=== PATIENT | female | born 1950 | race Caucasian/White ===

== ENCOUNTER → 2023-11-29 06:20 | Day surgery (SDC) | payer OTHER, SELFPAY | LOC: GI 06:20 | PROVIDERS: ATTENDING PHYSICIAN Internal Medicine Gastroenterology | DX: Z12.11 Encounter for screening for malignant neoplasm of colon (principal); K64.8 Other hemorrhoids; K57.30 Diverticulosis of large intestine without perforation or abscess without bleeding; R12 Heartburn; K22.2 Esophageal obstruction; K44.9 Diaphragmatic hernia without obstruction or gangrene | CPT/HCPCS: 43235; G0121 ==

== ENCOUNTER → 2023-12-14 10:36 | Outpatient (REF) | payer OTHER, SELFPAY | LOC: WDC 10:36 | PROVIDERS: ATTENDING PHYSICIAN Family Medicine | DX: Z12.31 Encounter for screening mammogram for malignant neoplasm of breast (principal) | CPT/HCPCS: 77063; 77067 ==

== ENCOUNTER 2024-02-14 07:30 | Emergency (ER) | payer OTHER, SELFPAY ==
[2024-02-14 07:34] VITALS: BP 150/97
--- NOTE | 2024-02-14 10:33 | ED.GENMED ---
History of Present Illness
<Traci Mitchell MD, Resident - Last Filed: 02/14/24 10:49>
General
Chief Complaint: Musculo-Skeletal Complaint
Time Seen by Provider: 02/14/24 10:14
History of Present Illness
History of Present Illness:
73 y/o female with pmhx of HTN and HLP presenting to the ED with right hip pain. Pt notes pain started yesterday evening but became worse around midnight. Pain radiates down along her posterior thigh to the plantar surface of her foot. Pt also notes
numbness in her right foot. Patient notes has had on and off pain in her right hip since a few months ago but no radiating pain in her leg. Denies back pain, fever, urinary/fecal incontinence, nausea, vomiting. No recent trauma. Pt had a right hip
replacement 10 years ago. Took Advil x4 this morning that helped relieve the pain. Describes current pain as 5/10. Pt is not able to bear weight on that side.
Past History
<Traci Mitchell MD, Resident - Last Filed: 02/14/24 10:49>
Past History
ED Past Medical History: HTN, Hypercholesterolemia and Other (Hiatal Hernia)
ED Past Surgical History: Orthopedic (Right hip replacement)
Review of Systems
<Traci Mitchell MD, Resident - Last Filed: 02/14/24 10:49>
Review of Systems
Constitutional: Reports no symptoms
EENT: Reports no symptoms
Respiratory: Reports no symptoms
Cardiac: Reports no symptoms
ABD/GI: Reports no symptoms
: Reports no symptoms
Musculoskeletal: Reports other (right hip pain radiating down the leg)
Skin: Reports no symptoms
Neurological: Reports no symptoms
Endocrine: Reports no symptoms
Hematologic/Lymphatic: Reports no symptoms
Psychiatric: Reports no symptoms
Phy Exam
<Traci Mitchell MD, Resident - Last Filed: 02/14/24 10:49>
Physical Exam
Physical Exam:
GENERAL: Alert, awake, in pain
EYE: pupils equal and reactive
NECK: Supple, no significant adenopathy.
ENT: o/p clr, mmm.
CARDIAC: Regular rate and rhythm.
LUNGS: Clear breath sounds bilaterally, no acute respiratory distress, no wheezes/rales/rhonchi
ABDOMEN: Soft, without focal tenderness, no r/g, no cvat
NEUROLOGICAL: Alert and oriented, no focal neurodeficits. No sensory loss on right lower extremity.
SKIN: Warm and dry, skin intact.
MUSCULOSKELETAL: No edema, well perfused. ROm normal on flexion/extension of right hip. No focal tenderness on hip joint line. Pain exacerbated with palpation of posterior thigh. No midline spinal tenderness.
PSYCH: Normal and appropriate interaction.
Course
<Traci Mitchell MD, Resident - Last Filed: 02/14/24 10:49>
Orders/Labs/Results
Orders:
Orders
02/14/24 10:33
Oxycodone/Acetaminophen [Percocet 5/325] 1 tablet PO NOW STA
Prednisone [Deltasone] 50 mg PO NOW STA
Lumbar Spine, 2 or 3 View [CR Lumbar Spine 2 Or 3 Views] Urgent
Comment:
Reason For Exam: radicupopthty
Vital Signs
Initial and Last Documented VS:
Initial Vital Signs
Temp Pulse Resp BP Pulse Ox
98.2 F 84 16 150/97 99
02/14/24 07:34 02/14/24 07:34 02/14/24 07:34 02/14/24 07:34 02/14/24 07:34
Last Documented Vital Signs
Temp Pulse Resp BP Pulse Ox
98.2 F 84 16 150/97 99
02/14/24 07:34 02/14/24 07:34 02/14/24 07:34 02/14/24 07:34 02/14/24 07:34
<Mike Armenta DO - Last Filed: 02/14/24 12:10>
Orders/Labs/Results
Orders:
Orders
02/14/24 10:33
Oxycodone/Acetaminophen [Percocet 5/325] 1 tablet PO NOW STA
Prednisone [Deltasone] 50 mg PO NOW STA
Lumbar Spine, 2 or 3 View [CR Lumbar Spine 2 Or 3 Views] Urgent
Comment:
Reason For Exam: radicupopthty
Vital Signs
Initial and Last Documented VS:
Initial Vital Signs
Temp Pulse Resp BP Pulse Ox
98.2 F 84 16 150/97 99
02/14/24 07:34 02/14/24 07:34 02/14/24 07:34 02/14/24 07:34 02/14/24 07:34
Last Documented Vital Signs
Temp Pulse Resp BP Pulse Ox
98.2 F 84 16 150/97 99
02/14/24 07:34 02/14/24 07:34 02/14/24 07:34 02/14/24 07:34 02/14/24 07:34
<Traci Mitchell MD, Resident - Last Filed: 02/14/24 10:49>
MDM/Problems Addressed
Differential Diagnosis Includes:
Radiculopathy 2/2
- Herniated disk
- Compression fracture
MDM/Problems Addressed:
Lumbar spine X-ray
Pain management
Steroids
<Traci Mitchell MD, Resident - Last Filed: 02/14/24 10:49>
*Critical Care Note
Total Time (30-74mins, 75-104mins- exclusive of procedures): Not Applicable
<Mike Armenta DO - Last Filed: 02/14/24 12:10>
Update Note
Update Note:
Update x-ray noted patient feeling better
ED Attending Note
<Traci Mitchell MD, Resident - Last Filed: 02/14/24 10:49>
-
Portions of this chart may have been created with voice recognition software.� Occasional wrong word or��sound alike� substitutions may have occurred due to the inherent limitations of voice recognition software.
<Mike Armenta DO - Last Filed: 02/14/24 12:10>
ED Attending Note
Patient seen and examined by attending physician: Yes
I performed a history and physical exam of patient and discussed management with resident, I reviewed resident's note and agree with documented findings and plan of care.: Yes
ED Attending Note:
Seen with resident examined independently 73-year-old female right total hip replacement 10 years ago is intermittent pain into her hip previously past few days has been worse, trouble ambulating, numbness down to her leg and thigh, no pain with
range of motion of her hip no fevers, no nausea or vomiting, suspect this could be a lumbar radiculopathy versus other will check LS-spine film treated with steroids and analgesics
Discharge Plan
Departure
Patient Disposition: Home (Routine Discharge)
Date of Disposition: 02/14/24
Time of Disposition: 12:09
Patient with high blood pressure during this ER visit?: No
Condition: Good
Discharge Problem:
Lumbar radiculopathy
Instructions: Radiculopathy (DC)
Prescriptions:
New
methylprednisolone [Medrol (Alex)] 4 mg tablets,dose pack
See Rx Instructions .ROUTE .COMPLEX Qty: 21 0RF
Rx Instructions:
for 6 days
oxycodone-acetaminophen [Percocet] 5-325 mg tablet
1 tab PO Q6HPRN PRN (Reason: pain) Qty: 10 0RF
Referrals:
Gabriel Tripp MD [Family Provider] - Next open appointment
Interventions
Interventions:
*Risk Screen - Suicide Last Done: 02/14/24 07:34
*General Assessment Last Done: 02/14/24 07:34
*Neglect/Abuse Screening Last Done: 02/14/24 07:34
ED-Musculoskeletal Assessment Last Done: 02/14/24 11:25
Discharge Date and Time
Print Language: POLISH
[2024-02-14] MEDS: PERCOCET 5/325 1 TABLET PO (11:07)
[2024-02-14] MEDS: DELTASONE 50 MG PO (11:07)
== END 2024-02-14 12:48 | disposition home or self-care (01) ==
LOC: EMR 07:30
PROVIDERS: EMERGENCY PHYSICIAN Emergency Medicine; FAMILY PHYSICIAN Family Medicine
DX: M47.26 Other spondylosis with radiculopathy, lumbar region (principal); I10 Essential (primary) hypertension; E78.00 Pure hypercholesterolemia, unspecified; K44.9 Diaphragmatic hernia without obstruction or gangrene; Z96.641 Presence of right artificial hip joint
CPT/HCPCS: 99283; 72100

== ENCOUNTER 2024-06-20 06:06 | Day surgery (SDC) | payer OTHER, SELFPAY ==
[2024-06-01 10:59] LABS: Hematocrit 41.4 % (37.0-47.0); Mean Corp Hgb Conc. 33.8 g/dL (33.0-37.0); Mean Corpuscular Hgb 32.6 pg (27.0-31.0); Mean Corpuscular Volume 96.3 fL (81.0-99.0); Mean Platelet Volume 9.7 fL (7.4-10.4); Platelet Count 299 10^3/uL (130-400); Red Cell Dist. Width 12.9 % (11.5-14.5); White Blood Cell Count 4.8 10^3/uL (4.8-10.8)
[2024-06-01 12:43] LABS: ALT (SGPT) 17 U/L (0-35); AST (SGOT) 24 U/L (14-36); Albumin 4.5 g/dl (3.5-5.0); Alkaline Phosphatase 53 U/L (38-126); Blood Urea Nitrogen 18 mg/dl (7-17); Calcium 9.5 mg/dl (8.4-10.2); Carbon Dioxide 31 mmol/L (22-30); Chloride 99 mmol/L (98-107); Glucose 92 mg/dl (70-99); Sodium 138 mmol/L (135-145); Total Bilirubin 0.9 mg/dl (0.2-1.3); Total Protein 6.8 g/dl (6.3-8.2); eGFR > 60.00
[2024-06-01 13:10] LABS: Potassium 4.1 mmol/L (3.5-5.1)
[2024-06-01 14:10] VITALS: BMI 27.0
[2024-06-14 12:05] VITALS: BMI 27.0
[2024-06-20] VITALS (27 sets, daily range): BP systolic 85–157; BP diastolic 51–91; BMI 27.0
[2024-06-20] MEDS: CELEBREX 200 MG PO (08:43)
[2024-06-20] MEDS: TYLENOL 1000 MG PO ×2 (08:44→20:50)
[2024-06-20] MEDS: METHOCARBAMOL 1500 MG PO (08:44)
[2024-06-20] MEDS: LYRICA 150 MG PO (08:44)
[2024-06-20] MEDS: NORMOSOL-R/PLASMALYTE-A 1000 IV ×4 (08:45→20:51)
[2024-06-20] MEDS: EMEND 40 MG PO (08:54)
[2024-06-20] MEDS: DILAUDID 0.5 MG IV ×3 (10:48→11:18)
[2024-06-20] MEDS: ZOFRAN 4 MG IV (12:57)
--- NOTE | 2024-06-20 13:00 | PTCARENOTE ---
PT has been very slow and lethargic to wake up, O2 sats drop as low as 86%, explained IS and had PT use it able to pull 1500, PT fell asleep while using IS, notified DR Cat of PT's condition and he did come to evaluate, DR Cat will be back
in 1 hour to check on PT
--- NOTE | 2024-06-20 14:20 | W.DS.TRANS ---
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
-
Discharge Instructions:
Sleep Apnea Risk Low
Discharge Diagnosis/Procedures l4-5 FORAMINOTOMY DISKECTOMY 06/20/24
Diet As tolerated
Activity No strenuous activity
Driving Restrictions No driving
Instructions:
Stand-Alone Forms: [facility]
Changes to Home Medications: Yes
Discharge Medications:
DC Medications w/original date entered in [employer]
atorvastatin 20 mg tablet 20 mg PO QPM 06/13/24
omeprazole magnesium 20 mg tablet,delayed release (Prilosec OTC) 20 mg PO DAILY 06/13/24
rizatriptan 10 mg disintegrating tablet 10 mg PO ONCE PRN migraines 06/13/24
Saccharomyces boulardii 250 mg capsule (Florastor) 250 mg PO BID #1 cap 06/20/24
acetaminophen 325 mg tablet (Tylenol) 650 mg (2 x 325 mg) PO QID #1 tab 06/20/24
cephalexin 500 mg capsule 500 mg PO QID infection prevention #20 caps 06/20/24
dexamethasone 4 mg tablet 4 mg PO BID inflammation #6 tabs 06/20/24
docusate sodium 100 mg capsule (Colace) 100 mg PO BID stool softner #1 cap 06/20/24
gabapentin 300 mg capsule 300 mg PO HS sleep/pain #10 caps 06/20/24
magnesium hydroxide 400 mg/5 mL oral suspension (Milk of Magnesia) 30 ml PO HS PRN Constipation #1 mL 06/20/24
ondansetron 4 mg disintegrating tablet 4 mg PO Q6H PRN n/v #20 tabs 06/20/24
sennosides 8.6 mg tablet (Senokot) 17.2 mg (2 x 8.6 mg) PO BID laxative #2 tabs 06/20/24
tizanidine 2 mg capsule 2 mg PO BID PRN muscle relaxer/sleep #20 caps 06/20/24
tramadol 50 mg tablet 50 mg PO Q6H PRN 1 tab moderate pain, 2 if severe #30 tabs 06/20/24
valsartan 160 mg-hydrochlorothiazide 12.5 mg tablet 1 tab PO QPM #0 tabs 06/20/24
Home Medication Changes
Saccharomyces boulardii 250 mg capsule (Florastor) 250 mg PO BID #1 cap 06/20/24
acetaminophen 325 mg tablet (Tylenol) 650 mg (2 x 325 mg) PO QID #1 tab 06/20/24
cephalexin 500 mg capsule 500 mg PO QID infection prevention #20 caps 06/20/24
dexamethasone 4 mg tablet 4 mg PO BID inflammation #6 tabs 06/20/24
docusate sodium 100 mg capsule (Colace) 100 mg PO BID stool softner #1 cap 06/20/24
gabapentin 300 mg capsule 300 mg PO HS sleep/pain #10 caps 06/20/24
magnesium hydroxide 400 mg/5 mL oral suspension (Milk of Magnesia) 30 ml PO HS PRN Constipation #1 mL 06/20/24
ondansetron 4 mg disintegrating tablet 4 mg PO Q6H PRN n/v #20 tabs 06/20/24
sennosides 8.6 mg tablet (Senokot) 17.2 mg (2 x 8.6 mg) PO BID laxative #2 tabs 06/20/24
tizanidine 2 mg capsule 2 mg PO BID PRN muscle relaxer/sleep #20 caps 06/20/24
tramadol 50 mg tablet 50 mg PO Q6H PRN 1 tab moderate pain, 2 if severe #30 tabs 06/20/24
valsartan 160 mg-hydrochlorothiazide 12.5 mg tablet 1 tab PO QPM #0 tabs 06/20/24
Pending Results: No
--- NOTE | 2024-06-20 14:20 | W.PN.UPDATE ---
Update Note
Progress Note Update
Hypotensive and hypoxemia per surgeon-IVF bolus + Midodrine, Decadron, incentive spirometry and minimize opioids--if patient stable with no orthostasis, she may leave--parameter added to home BP med
--- NOTE | 2024-06-20 14:47 | PTCARENOTE ---
1430 MARIA ELENA Joyner in to see patient at bedside. Contacted admissions for bed.
--- NOTE | 2024-06-20 15:04 | W.PN.ORTHO ---
Today's Communication / Plan
-
keep overnight and d/c in am if stable
Assessment
.
Distal Motor Intact: Yes
Dressing:
Clean, dry and intact.
Assessment:
Hypotensive and hypoxemic-no SOB-due to anesthesia--IVF bolus + Midodrine, Decadron, incentive spirometry and minimize opioids--if patient stable with no orthostasis, she may leave in am--parameter added to home BP med
Nausea-Zofran ineffective-IV Compazine-can only tolerate Ultram
Plan
.
Surgery / Date: L4-5 FORAMINOTOMY DISKECTOMY 06/20/24
Activity:
Out of bed.
PT/OT
Discharge Plan: Home
Subjective
.
.:
Patient lethargic and nauseaous
Vital Signs and Labs
.
Vital Signs and Labs:
Lab Results
06/01/24 09:12
06/01/24 09:12
Temp Pulse Resp BP Pulse Ox
97.2 F 92 16 121/74 95
06/20/24 10:30 06/20/24 14:42 06/20/24 14:42 06/20/24 14:30 06/20/24 14:42
Physical Exam
-
HEENT: No pallor, cyanosis, or jaundice. Throat clear.
NECK: Supple. No JVD.
RESPIRATORY: Lungs clear to auscultation.
CVS: S1, S2 normal. RRR.� No murmur, rub or gallop.
ABDOMEN: Soft, non-tender. No distension. BS+/normal.
EXTREMITIES: strength equal, no calf pain with palpation
MOCCASIN SEWER: AOx3. No focal deficits. specialty sales representative grossly intact
[2024-06-20] MEDS: COMPAZINE 10 MG IV (15:14)
[2024-06-20] MEDS: ProAmatine 5 MG PO (16:18)
[2024-06-20] MEDS: D5/0.45%NACL 500 IV (16:25)
[2024-06-20] MEDS: ANCEF 5 IV ×2 (16:38→23:18)
--- NOTE | 2024-06-20 17:15 | PTCARENOTE ---
Awoke pt for her to void. Pt stated she would be able to transfer to commode and felt the urge to void. Assisted pt to commode, tolerated well. Stated she has some discomfort, but it is tolerable. Pt will try and sip some simona-ssuie, no longer
actively vomiting. Pt has call light.
--- NOTE | 2024-06-20 19:45 | TRANSFER ---
Report called to [facility]. Pt's @ bedside for transfer, belongings transferred with pt.
[2024-06-20] MEDS: DECADRON 4 MG IV (20:49)
[2024-06-20] MEDS: COLACE 100 MG PO (20:49)
[2024-06-20] MEDS: SENOKOT 17.2 MG PO (20:49)
[2024-06-20] MEDS: LIPITOR 20 MG PO (20:53)
[2024-06-20] MEDS: PROTONIX 40 MG PO (20:56)
[2024-06-20] MEDS: TYLENOL PO (20:58)
--- NOTE | 2024-06-20 23:15 | PTCARENOTE ---
Pt arrived from PACU to room 2116 at aprox 1800. Pt vitals stable. Admission and assessment done. Pt with some nausea post op. No c/o of pain at t his time. Lower back incision CDI. Advised pt to ring for assistance. Pt to wear back brace on
ambulation.
[2024-06-21] MEDS: TYLENOL 1000 MG PO ×2 (01:38→08:06)
[2024-06-21] MEDS: NORMOSOL-R/PLASMALYTE-A 1000 IV (01:38)
[2024-06-21 03:47] VITALS: BP 114/66
[2024-06-21 07:15] VITALS: BP 126/75
[2024-06-21 07:23] LABS: Hematocrit 36.7 % (37.0-47.0); Hemoglobin 12.4 g/dL (12.0-16.0)
[2024-06-21 07:51] LABS: Blood Urea Nitrogen 12 mg/dl (7-17); Calcium 8.9 mg/dl (8.4-10.2); Carbon Dioxide 30 mmol/L (22-30); Chloride 102 mmol/L (98-107); Estimated Creatinine Clearance 77 ml/min; Glucose 120 mg/dl (70-99); Potassium 3.9 mmol/L (3.5-5.1); Sodium 136 mmol/L (135-145); eGFR > 60.00
--- NOTE | 2024-06-21 07:59 | W.DS.TRANS ---
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
-
Discharge Instructions:
Sleep Apnea Risk Low
Discharge Diagnosis/Procedures L4-5 FORAMINOTOMY DISKECTOMY 06/20/24
Diet As tolerated
Activity No strenuous activity
Driving Restrictions No driving
Instructions:
Stand-Alone Forms: [facility]
Changes to Home Medications: No
Discharge Medications:
DC Medications w/original date entered in [employer]
atorvastatin 20 mg tablet 20 mg PO QPM 06/13/24
omeprazole magnesium 20 mg tablet,delayed release (Prilosec OTC) 20 mg PO DAILY 06/13/24
rizatriptan 10 mg disintegrating tablet 10 mg PO ONCE PRN migraines 06/13/24
Saccharomyces boulardii 250 mg capsule (Florastor) 250 mg PO BID #1 cap 06/20/24
acetaminophen 325 mg tablet (Tylenol) 650 mg (2 x 325 mg) PO QID #1 tab 06/20/24
cephalexin 500 mg capsule 500 mg PO QID infection prevention #20 caps 06/20/24
dexamethasone 4 mg tablet 4 mg PO BID inflammation #6 tabs 06/20/24
docusate sodium 100 mg capsule (Colace) 100 mg PO BID stool softner #1 cap 06/20/24
gabapentin 300 mg capsule 300 mg PO HS sleep/pain #10 caps 06/20/24
magnesium hydroxide 400 mg/5 mL oral suspension (Milk of Magnesia) 30 ml PO HS PRN Constipation #1 mL 06/20/24
ondansetron 4 mg disintegrating tablet 4 mg PO Q6H PRN n/v #20 tabs 06/20/24
sennosides 8.6 mg tablet (Senokot) 17.2 mg (2 x 8.6 mg) PO BID laxative #2 tabs 06/20/24
tizanidine 2 mg capsule 2 mg PO BID PRN muscle relaxer/sleep #20 caps 06/20/24
tramadol 50 mg tablet 50 mg PO Q6H PRN 1 tab moderate pain, 2 if severe #30 tabs 06/20/24
valsartan 160 mg-hydrochlorothiazide 12.5 mg tablet 1 tab PO QPM #0 tabs 06/20/24
Home Medication Changes
Pending Results: No
--- NOTE | 2024-06-21 07:59 | W.PN.SP ---
Today's Communication / Plan
-
s/p lami
PT
D/c
Subjective / Objective
Subjective Data
Pt doing well
Admitted with hypotneison and low sats
Better today
Pain better in leg
Denies wekaness
Objective Data
Vital Signs
Temp Pulse Resp BP Pulse Ox
97.8 F 60 18 114/66 94
06/21/24 03:47 06/21/24 03:47 06/21/24 03:47 06/21/24 03:47 06/21/24 03:47
Intake and Output
06/20/24 06/21/24 06/22/24
06:59 06:59 06:59
Intake Total 1000 / 1000
Balance 1000 / 1000
Intake:
IV fluids (Total) 1000 / 1000
Other:
Number of approximated MODERATE 2
amounts of urine
Lab Data
06/21/24 06:19
06/21/24 06:19
Physical Exam
-
Moving both LE
[2024-06-21] MEDS: COLACE 100 MG PO (08:06)
[2024-06-21] MEDS: SENOKOT 17.2 MG PO (08:06)
[2024-06-21] MEDS: ProAmatine 5 MG PO (08:06)
[2024-06-21] MEDS: DECADRON 4 MG IV (08:06)
[2024-06-21 09:55] VITALS: BP 127/73; PULSE 75
--- NOTE | 2024-06-21 09:55 | W.PN.ORTHO ---
Today's Communication / Plan
-
d/c
Assessment
.
Distal Motor Intact: Yes
Dressing:
Clean, dry and intact.
Assessment:
Hypotensive and hypoxemic in SDS---no SOB--due to anesthesia--IVF bolus + Midodrine, Decadron, incentive spirometry, opioids minimized-- no further orthostasis POD#1, O2 sats stable RA--parameter added to home BP med
Nausea-Zofran ineffective-IV Compazine-can only tolerate Ultram--resolved POD#1
Plan
.
Surgery / Date: L4-5 FORAMINOTOMY DISKECTOMY 06/20/24
Activity:
Out of bed.
PT/OT
Discharge Plan: Home
Subjective
.
.:
Patient resting comfortably.
Vital Signs and Labs
.
Vital Signs and Labs:
Lab Results
06/21/24 06:19
06/21/24 06:19
Temp Pulse Resp BP Pulse Ox
97.7 F 62 16 126/75 95
06/21/24 07:15 06/21/24 08:06 06/21/24 07:15 06/21/24 08:06 06/21/24 07:15
Physical Exam
-
HEENT: No pallor, cyanosis, or jaundice. Throat clear.
NECK: Supple. No JVD.
RESPIRATORY: Lungs clear to auscultation.
CVS: S1, S2 normal. RRR.� No murmur, rub or gallop.
ABDOMEN: Soft, non-tender. No distension. BS+/normal.
EXTREMITIES: strength equal, no calf pain with palpation
REMOTE SENSING ADVISOR: AOx3. No focal deficits. prototype engineer grossly intact
[2024-06-21 10:32] VITALS: BP 128/78; PULSE 74; O2SAT 96
[2024-06-21] MEDS: NORMOSOL-R/PLASMALYTE-A IV (11:14)
[2024-06-21 11:38] VITALS: BP 131/77
== END 2024-06-21 11:52 | disposition home or self-care (01) ==
LOC: SDS 06:06
PROVIDERS: Physician Assistant Medical; ATTENDING PHYSICIAN Orthopaedic Surgery Orthopaedic Surgery of the Spine; FAMILY PHYSICIAN Family Medicine
DX: M48.061 Spinal stenosis, lumbar region without neurogenic claudication (principal); M51.26 Other intervertebral disc displacement, lumbar region
CPT/HCPCS: 63047; 36415; 72020; 80048; 80053; 85014; 85018; 85027; 87070; 93005; 97162; 97166

== ENCOUNTER → 2024-12-17 18:20 | Outpatient (REF) | payer OTHER, SELFPAY | LOC: WDC 18:20 | PROVIDERS: ATTENDING PHYSICIAN Family Medicine | DX: Z12.31 Encounter for screening mammogram for malignant neoplasm of breast (principal) | CPT/HCPCS: 77063; 77067 ==